=== PATIENT | male | born 1995 | race Caucasian/White ===

== ENCOUNTER 2016-09-15 20:06 | Emergency (ER) | payer BC ==
[~2016-09-15] VITALS: Ht 177.8 cm; Wt 84.7 kg
[2016-09-15 20:10] VITALS: PULSE 70; TEMP 36.9; Ht 177.8 cm; Wt 84.7 kg
[2016-09-15] MEDS ORDERED: GELATIN SPONGE 12-7MM EXT ONE (20:30)
[2016-09-15] MEDS ORDERED: XYLOCAINE 1%/SOD BICARB 20 ML VIAL INFIL ONE (20:30)
[2016-09-15] MEDS ORDERED: PROP10TA7 PO (20:52)
[2016-09-15] MEDS ORDERED: CYM/30 PO ×2 (20:52)
[2016-09-15] MEDS ORDERED: OXCA150T2 PO (20:52)
[2016-09-15] MEDS ORDERED: AMPH10CA3 PO (20:52)
[2016-09-15] MEDS ORDERED: PENI-73 PO (20:52)
[2016-09-15] MEDS ORDERED: CEPH500C PO (21:54)
[2016-09-15] MEDS ORDERED: HYDR-5688 PO (21:54)
[2016-09-15] MEDS ORDERED: CEPHALEXIN MONOHYDRATE 250 MG CAP PO ONE (22:00)
[2016-09-15] MEDS ORDERED: CEPHALEXIN 500MG HOME PACK 1 EA BTL PO ONE (22:00)
[2016-09-15] MEDS ORDERED: NORCO 5/325MG HOME PACK PO ONE (22:00)
[2016-09-15 22:15] VITALS: BP 130/75; O2SAT 98
--- NOTE | 2016-09-16 00:49 | EMERGENCY ROOM VISIT NOTE ---
History First contact with patient: 20:09 Chief Complaint: LACERATION/CUT (SUT/DERMABOND) Stated Complaint: LACERATION TO LEFT THUMB Nursing Triage Summary: Cut left thumb while opening a box with a kitchen knife. History of Present Illness The patient is a 20 year old male who presents to the Emergency Room with complaints of injury to the dorsal aspect of his left thumb just prior to arrival. The patient states he was opening a box with a ceramic kitchen knife, when he slipped, and cut into the back of his left thumb. The patient had immediate bleeding and was able to wrap it at home. He contacted EMS, and now presents for further evaluation. The patient is a student at the [employer] and is reportedly up-to-date on his tetanus. He reports full sensation and range of motion of the left thumb area and he has not had similar injury in the past. His bleeding is fairly well controlled and he rates his current discomfort a 4/10. Review of Systems More than 10 systems were reviewed and otherwise negative with the exception of history of present illness. Past Medical/Surgical History No pertinent chronic medical disease Family History No pertinent family history Social History Smoking Status: Never Smoker Occupation Status: [employer] student Current/Historical Medications Scheduled Amphetamine-Dextroamphetamine 10MG (Adderall Xr 10MG), 10 MG PO QAM Cephalexin Monohydrate (Keflex), 500 MG PO QID Duloxetine HCl (Cymbalta), 30 MG PO QAM Duloxetine HCl (Cymbalta), 60 MG PO QPM Oxcarbazepine (Trileptal), 150 MG PO BID Penicillin V Potassium (Veetids), 250 MG PO BID Propranolol (Inderal), 10 MG PO BID Scheduled PRN Hydrocodone/Acetaminophen 5MG/325MG (Morrison 5MG/325MG), 1 TABLET PO Q6 PRN for Pain Allergies Coded Allergies: Succinylcholine (Verified Allergy, Unknown, Unknown, 09/15/16) Physical Exam Vital Signs Date Time Temp Pulse Resp B/P Pulse Ox O2 Delivery O2 Flow Rate FiO2 09/15/16 22:15 130/75 98 09/15/16 20:10 36.9 70 135/80 99 Room Air Pain Rating (0-10): 0 Physical Exam VITALS: Vitals are noted on the nurse's note and reviewed by myself. Vital signs stable. GENERAL: Well-developed, well-nourished, white male, who is in no acute distress and resting comfortably. Patient is cooperative with the examination. HEAD: Normocephalic atraumatic. HEART: Regular rate and rhythm without murmurs gallops or rubs. LUNGS: Clear to auscultation bilaterally without wheezes, rales or rhonchi. No retractions or accessory muscle use. MUSCULOSKELETAL: There is a essentially 2.0 x 1.0 cm complete tissue avulsion over the dorsum of the proximal phalanx left first finger. This does penetrate deeply and bone is easily visualized. The patient is able to flex and extend the first digit against resistance. Bleeding is noted but easily controlled with a pressure dressing. He does have sensation to the distal digit. No other injuries noted. NEURO: Patient was alert and oriented to person place and time. CN II through XII grossly intact. Medical Decision & Procedures Medications Administered Medications (Trade) Dose Ordered Sig/Мария Route Start Time Stop Time Status Last Admin Dose Admin Lidocaine HCl (Buffered Lidocaine 1% Inj) 20 ml NOW ONCE INFIL 09/15/16 20:30 09/15/16 20:31 DC 09/15/16 20:28 20 ML Gelatin (Surgifoam Sponge 12-7MM (SMALL)) 1 ea NOW ONCE EXT 09/15/16 20:30 09/15/16 20:31 DC 09/15/16 20:28 1 EA Acetaminophen/ Hydrocodone Bitart (Morrison 5/325mg Home Pack) 1 homepack UD ONCE PO 09/15/16 22:00 09/15/16 22:01 DC 09/15/16 22:00 1 HOMEPACK Cephalexin Monohydrate (Keflex 500MG Home Pack) 1 homepack NOW ONCE PO 09/15/16 22:00 09/15/16 22:01 DC 09/15/16 22:00 1 HOMEPACK Cephalexin Monohydrate (Keflex Cap) 500 mg NOW ONCE PO 09/15/16 22:00 09/15/16 22:01 DC 09/15/16 22:00 500 MG ED Course Physical exam and history were performed. Nursing notes and EMR were reviewed. Patient appears to have suffered a deep and complicated laceration to the dorsum of his left thumb. I discussed options of care with the patient, and we felt that a suture repair may be necessary. The patient was cleansed with Betadine and a digital block was performed utilizing 4 mL's of 1% buffered lidocaine. While the patient was under the digital block, I copiously irrigated his wound with 1 L of normal saline. Evaluation of the wound shows that it is quite deep, and does penetrate to the bone. There is also concern that he may have encroached on the joint capsule of the DIP. I cannot easily identify the extensor tendon in full. Attempts to reapproximate and close the wound were not successful. The patient is simply missing too much tissue in this area to have a reasonable closure. I discussed the case with the on-call orthopedic hand specialist, Dr Rogers. Dr Rogers indicated that he would like to see the patient tomorrow for further evaluation. He recommended a dressing and initiation of antibiotics. The patient was placed in a Xeroform, 4 x 4, and Coban dressing. He was given an initial dose of Keflex and a home pack here in the department. He will also be given a course of Vicodin for pain control. The patient understands that he is to contact orthopedics first thing at 8 AM tomorrow to make his appointment. Evidently Dr Rogers has office hours in [place] tomorrow (Friday), and the patient is willing to travel to be seen. If the patient is not able to be seen tomorrow he may be seen in the [place] office on Friday. I did ask the patient to come back to the emergency department if he was not able to be seen on Friday or Friday. Otherwise the patient appears well for discharge home. He was pleased with this plan of care and understands the importance of following up as instructed. He rated his discomfort a 0/10 at the time of departure. The chart was completed utilizing [employer] Voice Recognition Software. Grammatical errors, random word insertions, pronoun errors, and incomplete sentences are an occasional consequence of this system due to software limitations, ambient noise, and hardware issues. Any formal questions or concerns about the content, text, or information contained within the body of this dictation should be directly addressed to the provider for clarification. . Medical Decision Differential diagnosis includes, but is not limited to: Laceration, skin avulsion, tendon or ligamentous injury, bony exposure, complicated laceration, and others Impression Primary Impression: Laceration of thumb, left, complicated Departure Information Dispostion Home / Self-Care Condition GOOD Prescriptions Hydrocodone/Acetaminophen 5MG/325MG (Morrison 5MG/325MG) Tab 1 TABLET PO Q6 Y for Pain, #12 TAB For Initial Treatment Prov: Fran Flower PA-C 09/15/16 Cephalexin Monohydrate (Keflex) 500 Mg Cap 500 MG PO QID for 7 Days, #28 CAP Prov: Fran Flower PA-C 09/15/16 Referrals Tan Rogers MD Forms HOME CARE DOCUMENTATION FORM, IMPORTANT VISIT INFORMATION Patient Instructions My [facility] Additional Instructions You were seen and evaluated today on an emergency basis only. This is not a substitute for, or an effort to provide, complete comprehensive medical care. It is not possible to recognize and treat all injuries or illnesses in a single emergency department visit. For this reason it is recommended that you followup with Orthopedic hand specialist, Dr. Rogers, tomorrow for ongoing care and evaluation. Call the phone number below and let the office know that you were seen in the emergency department. We did speak with Dr. Rogers, and he would like to see you for an office visit. You may see him in [place] on Friday or in [place] on Friday depending on your availability. The office will help make her appointment. Call at 8 AM. For baseline pain relief you may alternate ibuprofen and acetaminophen every 4 hours for pain control. Take 600 mg ibuprofen (Advil) and then 4 hours later take 1000 mg acetaminophen (Tylenol). Do not take more than 3000 mg acetaminophen in a single day. Morrison (hydrocodone/acetaminophen) 5/325 mg every 6 hours as needed for worsening breakthrough pain. Do not drink or drive on [place]. This medication will likely make you tired. Do not take Morrison and Tylenol at the same time as both contain acetaminophen. Morrison may cause constipation. You may wish to take an [id number] stool softener like Colace if this occurs. Cephalexin(Keflex) 500mg: Take one pill 4 times daily for 7 days to prevent skin infection. All antibiotics can cause diarrhea. If this occurs and you feel worse or it does not resolve in 1-2 days follow up with your doctor or return to the Emergency Department as this could be signs of serious underlying problems. Any medication can cause an allergic reaction, stop the pills immediately and return to the ER for rash, hives, breathing difficulties, or swelling. You are welcome to return to the emergency department anytime with new, worsening, or concerning symptoms.
== END 2016-09-15 22:16 | disposition home or self-care (01) ==
LOC: C.EDD 20:08
DX: S61.012A Laceration without foreign body of left thumb without damage to nail, initial encounter (principal); W26.0XXA Contact with knife, initial encounter; Z79.899 Other long term (current) drug therapy; Y92.009 Unspecified place in unspecified non-institutional (private) residence as the place of occurrence of the external cause